=== PATIENT | female | born 1990 | race Caucasian/White ===

== ENCOUNTER 2018-02-06 08:57 | Emergency (ER) | END 2018-02-06 12:39 | disposition home or self-care (01) ==

== ENCOUNTER 2018-03-15 08:57 | Emergency (ER) | END 2018-03-15 10:28 | disposition home or self-care (01) ==

== ENCOUNTER 2018-06-06 18:39 | Outpatient (CLI) | END 2018-06-06 19:53 | disposition home or self-care (01) ==

== ENCOUNTER 2018-07-30 11:44 | Outpatient (CLI) | payer OTHER ==
[~2018-07-30] VITALS: Ht 165.1 cm; Wt 132.0 kg
[~2018-07-30 11:44] MED LIST: ACET500C5 PO; ALBU8.5H8 INH
[2018-07-30 11:59] VITALS: BP 125/61; PULSE 83; RESP 18; Ht 165.1 cm; Wt 132.0 kg
--- NOTE | 2018-07-30 14:26 | TRIAGE ---
OB Triage Datetime Report Generated by CPN: 07/30/2018 14:26 Datetime: 07/30/2018 12:52 Stage of : OB Triage Headache: Denies Blurred Vision: No RUQ Epigastric Pain: Denies Facial Edema: None Labor Evaluation Frequency: none Pattern: Normal: <= 5 Contractions in 10 Minutes Resting Tone [place]: Relaxed Heart Rate FHR Baseline Rate: 140 Monitor Mode: External US FHR Baseline Changes: No Baseline Change Variability: Moderate 6-25 bpm Accelerations: 15X15 Decelerations: None Category: Category I Comments: NST- reactive Pain Presence: None/Denies Vaginal Exam Membrane Status: Intact Datetime: 07/30/2018 12:30 Stage of : OB Triage Headache: Denies Blurred Vision: No RUQ Epigastric Pain: Denies Facial Edema: None Labor Evaluation Frequency: none Pattern: Normal: <= 5 Contractions in 10 Minutes Resting Tone [place]: Relaxed Heart Rate FHR Baseline Rate: 140 Monitor Mode: External US FHR Baseline Changes: No Baseline Change Variability: Moderate 6-25 bpm Accelerations: 15X15 Decelerations: None Category: Category I Pain Presence: None/Denies Vaginal Exam Membrane Status: Intact Datetime: 07/30/2018 11:54 Time of Arrival: 07/30/2018 11:52 EGA: 38.4 Arrived By: Ambulatory Arrived From: Dr. Rodriguez Chief Complaint: sent from clinic for NST /BPP, scheduled for section on 08/02/18 Movement: Present Contractions: Denies/Absent Rupture of Membranes: Denies Vaginal Bleeding: None Vaginal Discharge: Denies Recent Sexual Intercouse: Denies Abdominal Trauma: Not Applicable Patient Complaints: Other Time Provider Notified: 07/30/2018 14:20 Provider Notified: Dr Yañez Initial Plan: efm/ U/S Datetime: 07/30/2018 11:52 Stage of : OB Triage Maternal Assessment Level of Consciousness: Fully Conscious DTR's/Clonus: DTRs 2+; No Clonus Headache: Denies Blurred Vision: No Respiratory Effort: Unlabored; Regular Rhythm; Equal Expansion Breath Sounds, Left: Clear and Equal Breath Sounds, Right: Clear and Equal Nausea/Vomiting: Denies RUQ Epigastric Pain: Denies Lower Extremities Edema: Bilateral Lower Extremities Degree: None Upper Extremities Edema: None Degree: None Facial Edema: None Temperature Route: Oral Fall Risk Assessment History of Falling: (0) No Secondary Diagnosis: (0) No Ambulatory Aid: (0) Bedrest/Nurse Assist IV Therapy: (0) No Gait: (0) Normal/Bedrest/Immobile Mental Status: (0) Oriented to Own Ability Fall Score: 0 Fall Risk Score Definition: No Risk: No action required Monitor Mode: External Heart Rate FHR Baseline Rate: 140 Monitor Mode: External US Pain Assessment Pain Scale: 0 Datetime: 06/06/2018 19:44 Labor Evaluation Frequency: NONE Monitor Mode: External Resting Tone [place]: Relaxed Contraction Comments: [place] REMOVED Heart Rate FHR Baseline Rate: 135 Monitor Mode: External US Variability: Moderate 6-25 bpm Accelerations: 15X15 Decelerations: None Comments: US REMOVED Datetime: 06/06/2018 19:04 Pattern: Normal: <= 5 Contractions in 10 Minutes Resting Tone [place]: Relaxed Contraction Comments: NO UC Heart Rate FHR Baseline Rate: 135 Monitor Mode: External US Variability: Moderate 6-25 bpm Accelerations: 15X15 Decelerations: None Category: Category I Comments: reactive nst Pain Presence: None/Denies Pain Type: N/A Datetime: 06/06/2018 18:55 Assessment Type: Triage Maternal Assessment Level of Consciousness: Fully Conscious DTR's/Clonus: DTRs 2+; No Clonus Headache: Denies Blurred Vision: No Respiratory Effort: Unlabored; Regular Rhythm; Equal Expansion Breath Sounds, Left: Clear and Equal Breath Sounds, Right: Clear and Equal Nausea/Vomiting: Denies RUQ Epigastric Pain: Denies Lower Extremities Edema: None Degree: None Upper Extremities Edema: None Degree: None Facial Edema: None Fall Risk Assessment History of Falling: (0) No Secondary Diagnosis: (0) No Ambulatory Aid: (0) Bedrest/Nurse Assist IV Therapy: (0) No Gait: (0) Normal/Bedrest/Immobile Mental Status: (0) Oriented to Own Ability Fall Score: 0 Fall Risk Score Definition: No Risk: No action required Datetime: 06/06/2018 18:53 Time of Arrival: 06/06/2018 18:18 EGA: 30.6 Arrived By: Ambulatory Arrived From: Office Chief Complaint: Pt. came to ob triage from md office with referral requested hx of low marsha, need t o be recheck Movement: Present Contractions: Denies/Absent Rupture of Membranes: Denies Vaginal Bleeding: None Vaginal Discharge: Denies Recent Sexual Intercouse: Denies Abdominal Trauma: Not Applicable Patient Complaints: None Provider Notified: CHE Initial Plan: rajat avitia
--- NOTE | 2018-07-30 14:27 | PN ---
Triage Information Date/Time Reason for visit: Sent by provider for NST BPP for Obesity Weeks of Gestation 38+ /Para n/a Diabetes: none Hypertention: none Objective Vital Signs Date Temp Pulse Resp B/P (MAP) Pulse Ox O2 O2 Flow FiO2 Time Delivery Rate 07/30/18 97.4 83 18 125/61 99 Room Air 11:59 (82) Heart Rate: 140's Contractions: None Disposition: Discharge Assessment/Plan BPP 03/20 CX closed Discharged with precautions Questions answered Precautions discussed MAGUI HESS M.D. Jul 30, 2018 14:27
== END 2018-07-30 14:30 | disposition home or self-care (01) ==
LOC: OBT 11:44 → L-D 11:44 → OBT 14:30
PROVIDERS: ATTEND Obstetrics & Gynecology
DX: O99.213 Obesity complicating pregnancy, third trimester (principal); E66.9 Obesity, unspecified; Z3A.38 38 weeks gestation of pregnancy
CPT/HCPCS: 76818; Z7500; G0463

== ENCOUNTER 2018-08-02 19:29 | Inpatient (IN) | payer OTHER ==
[~2018-08-02] VITALS: Ht 165.1 cm; Wt 132.0 kg
[2018-08-02] MEDS ORDERED: LACTATED RINGER'S 1,000 ML IV SCH (19:56)
[2018-08-02] MEDS ORDERED: CARBOPROST 250 MCG INJ IM PRN (20:00)
[2018-08-02] MEDS ORDERED: OXYTOCIN 30 UNITS/LR 500 ML IV PRN (20:00)
[2018-08-02] MEDS ORDERED: METHYLERGONOVINE 0.2 MG INJ IM PRN (20:00)
[2018-08-02] MEDS ORDERED: MISOPROSTOL 200 MCG TAB PR PRN (20:00)
[2018-08-02] MEDS ORDERED: CEFAZOLIN 2 GM/50 ML (PMX) 50 ML IVPB SCH (20:00)
[2018-08-02 20:20] VITALS: Ht 165.1 cm; Wt 132.0 kg
--- NOTE | 2018-08-02 20:57 | HP ---
Date/Time of Note Date/Time of Note DATE: 08/02/18 TIME: 20:48 OB - History Hx of Present Free Text/Dictation 28-year-old 2 para 1001 with previous delivery for macrosomia and obesity at 39 weeks with a SALVATORE of 08/09/2018 desires repeat delivery. She declined TOLAC. She states good movement. She denies nausea, vomiting, shortness of breath, chest pain, headache, visual changes, vaginal bleeding or LOF. Chief Complaint: Scheduled for repeat delivery Estimated Due Date: Aug 09, 2018 : 2 Para: 1 Spontaneous : 0 Therapeutic : 0 Care: Good Care Ultrasounds: Normal mid trimester US Obstetrical Complications: None Medical Complications: None Past Family/Social History * Past Medical, Surgical, Family and Obstetric Histories reviewed from chart. Blood Type: A+ Rubella: not immune RPR/VDRL: Negative GBS Status: Positive HBsAG: Negative OB Admission Exam Vital Signs Vital Signs Blood pressure 126/72, pulse rate 70/minutes, respiratory rate 16/minutes, temperature 98.6 Physical Exam HEENT: WNL Heart: Rhythm Normal Lungs: Clear Abdomen: WNL Extremities: Normal Reflexes: Normal Membranes: Intact Heart Rate: 130's Accelerations: Accelerations Present Decelerations: No Decelerations Varibility: Moderate Contractions on Admission: None Last 72 hours Lab Results CBC & BMP 08/02/18 20:25 OB Assessment/Plan Other plan: 28-year-old 2 para 1001 with 2 previous delivery and obesity at 39 weeks desires repeat delivery - FHR: No sign of metabolic acidosis- Category I - Continuous EFM, toco - CBC, blood type and screen - Please see the orders - A+/Rubella: Non immune, discussed with patient. She understands needs rubella vaccine after delivery - GBS: Positive The risk of delivery including but not limited to bleeding, infection, injury to other organs (bowel, bladder, ureter, vessels, nerves), injury to fetus, blood transfusion, blood transfusion related infection, risk of anesthesia, adhesion, needs for future , removal of uterus or any other indicated surgery was discussed with the patient and her family. She expressed understanding. All of her questions were answered. She signed the informed consent. PHYSICIAN'S VERIFICATION OF INFORMED CONSENT The patient and her family member counseled regarding the procedure, its indications, risks, potential complications and alternatives and any questions were answered. Consent was obtained. PLANNED PROCEDURE/TREATMENT: delivery with possible using v acuum/forceps and any other indicated surgery PHYSICIAN'S VERIFICATION OF INFORMED CONSENT FOR BLOOD TRANSFUSION: There is a reasonable possibility that blood transfusion will be necessary as a result of the patient's procedure. I have discussed the following with the patient/patient's legal site safety representative: An explanation of the benefits and risks of the transfusion of blood or blood products and the possible alternatives. All questions have been answered to the patient's satisfaction. INFORMED CONSENT:The patient has been informed of: The nature of the proposed care, treatment, services, medications, interventions or procedures. Potential benefits, risks or side effects, including potential problems related to recuperation. The likelihood of achieving care treatment and service goals. Reasonable alternatives to the proposed care, treatment and service. The relevant risks, benefits and side effects related to alternatives, including the possible results of not receiving care, treatment and services. When indicated, any limitations on the confidentiality of information learned from or about the patient. If appropriate, the risks, benefits and alternatives of the drugs to be used for sedation/analgesia including moderate sedation. If appropriate, patient has been provided information on the risks, benefits and alternatives to the transfusion of blood and/or blood products. If appropriate, patient has been provided information regarding the [employer] Blood Act. GAL GRAY Aug 02, 2018 20:57
--- NOTE | 2018-08-02 21:50 | PREAC ---
Date/Time of Note Date/Time of Note DATE: 08/02/18 TIME: 21:46 Anesthesia Eval and Record Evaluation Time Pre-Procedure Interview DATE: 08/02/18 TIME: 21:46 Age 28 Sex female NPO: 8 hrs Preoperative diagnosis repeat csection Planned procedure C section Past Medical History Past Medical History: Includes GI: Morbid obesity Surgery & Anesthesia Issues No known issue Meds Anticoagulation: No Beta Poornima within 24 hr: No Reason Beta Poornima not given: Pt. not on B-Poornima Active Scripts Acetaminophen* (Tylophen*) 500 Mg Capsule, 1 CAP PO Q6H PRN for PAIN AND OR ELEVATED TEMP, #20 CAP Prov:FERNANDA JOSE PA-C 02/06/18 Albuterol Sulfate* (Proair HFA*) 8.5 Gm Hfa.aer.ad, 2 PUFF INH Q4H PRN for WHEEZING AND SOB, #1 INHALER Prov:GUSTAVO SMITH NP 02/21/16 Current Medications Lactated Ringer's 1,000 ml @ 125 mls/hr Q8H IV ; Start 08/02/18 at 19:56 Cefazolin Sodium/ Dextrose 50 ml @ 100 mls/hr ONCE IVPB ; Start 08/02/18 at 20:00 Oxytocin/Lactated Ringer's 500 ml @ 125 mls/hr POST IV ; Start 08/02/18 at 20:00 Oxytocin/Lactated Ringer's 500 ml @ 0 mls/hr ONCE PRN IV .VAGINAL BLEEDING; Start 08/02/18 at 20:00 Methylergonovine Maleate (Methergine) 0.2 mg ONCE PRN IM .VAGINAL BLEEDING; Start 08/02/18 at 20:00 Carboprost Tromethamine (Hemabate) 250 mcg ONCE PRN IM .VAGINAL BLEEDING; Start 08/02/18 at 20:00 Misoprostol (Cytotec) 1,000 mcg ONCE PRN [place] .VAGINAL BLEEDING; Start 08/02/18 at 20:00 Meds reviewed: Yes Allergies Coded Allergies: No Known Allergy (Unverified , 02/06/18) Allergies Reviewed: Yes Labs/Studies Labs Reviewed: Reviewed by anesthesiologist Result Diagram: 08/02/182024 Laboratory Tests 08/02/18 20:25 Blood Bank Test 08/02/18 20:25 Antibody Screen NEGATIVE Blood Type A POSITIVE Rh Immune Globulin Candidate NO test: Positive Studies: ECG (n/a), CXR (n/a) Pre-procedure Exam Airway: Adequate mouth opening Mallampati: Mallampati II Teeth: Normal Lung: Normal Heart: Normal ASA Physical Status ASA physical status: 3 Emergency: None Planned Anesthetic Neuraxial: Spinal Planned Pain Management Sub-arachniod narcotics Pre-operative Attestations Prior to commencing anesthesia and surgery, the patient was re-evaluated, there was verification of: *The patient's identity *The results of appropriate recent lab work and preoperative vital signs *The above evaluation not changing prior to induction *Anesthetic plan, risk benefits, alternative and complications discussed with patient/family; questions answered; patient/family understands, accepts and wishes to proceed. ANANT DAO MD Aug 02, 2018 21:50
[2018-08-03] MEDS ORDERED: morphine SULFATE/PF (10 MG/10 ML) INJ ONE (08:11)
[2018-08-03] MEDS ORDERED: MIDAZOLAM 1 MG/ML 2 ML INJ ONE (08:51)
[2018-08-03] MEDS ORDERED: BUPIVACAINE 0.75%/DEXT (SPINAL) 2 ML INJ ONE (08:51)
--- NOTE | 2018-08-03 08:56 | PREAC ---
Date/Time of Note Date/Time of Note DATE: 08/03/18 TIME: 08:49 Anesthesia Eval and Record Evaluation Time Pre-Procedure Interview DATE: 08/03/18 TIME: 07:43 Age 28 Sex female NPO: 8 hrs Preoperative diagnosis iup @ 39 wks., prev. c/s, , contractions Planned procedure repeat c/s Past Medical History Past Medical History: Includes (BMI) Pulm: Asthma : Gestational age: (39 wks), Other Surgery & Anesthesia Issues No known issue Meds Anticoagulation: No Beta Poornima within 24 hr: No Reason Beta Poornima not given: Pt. not on B-Poornima Active Scripts Acetaminophen* (Tylophen*) 500 Mg Capsule, 1 CAP PO Q6H PRN for PAIN AND OR ELEVATED TEMP, #20 CAP Prov:FERNANDA JOSE PA-C 02/06/18 Albuterol Sulfate* (Proair HFA*) 8.5 Gm Hfa.aer.ad, 2 PUFF INH Q4H PRN for WHEEZING AND SOB, #1 INHALER Prov:GUSTAVO SMITH ICE CREAM FREEZER 02/21/16 Current Medications Lactated Ringer's 1,000 ml @ 125 mls/hr Q8H IV Last administered on 08/03/18at 05:50; Admin Dose 125 MLS/HR; Start 08/02/18 at 19:56 Cefazolin Sodium/ Dextrose 50 ml @ 100 mls/hr ONCE IVPB ; Start 08/02/18 at 20:00 Oxytocin/Lactated Ringer's 500 ml @ 125 mls/hr POST IV ; Start 08/02/18 at 20:00 Oxytocin/Lactated Ringer's 500 ml @ 0 mls/hr ONCE PRN IV .VAGINAL BLEEDING; Start 08/02/18 at 20:00 Methylergonovine Maleate (Methergine) 0.2 mg ONCE PRN IM .VAGINAL BLEEDING; Start 08/02/18 at 20:00 Carboprost Tromethamine (Hemabate) 250 mcg ONCE PRN IM .VAGINAL BLEEDING; Start 08/02/18 at 20:00 Misoprostol (Cytotec) 1,000 mcg ONCE PRN IN .VAGINAL BLEEDING; Start 08/02/18 at 20:00 Meds reviewed: Yes Allergies Coded Allergies: No Known Allergy (Unverified , 02/06/18) Allergies Reviewed: Yes Labs/Studies Labs Reviewed: Reviewed by anesthesiologist Result Diagram: 08/02/182024 Laboratory Tests 08/02/18 20:25 Blood Bank Test 08/02/18 20:25 Antibody Screen NEGATIVE Blood Type A POSITIVE Rh Immune Globulin Candidate NO test: Positive Studies: ECG (n/a) Pre-procedure Exam Airway: Adequate mouth opening, Adequate thyromental dist Mallampati: Mallampati II Teeth: Normal Lung: Normal Heart: Normal ASA Physical Status ASA physical status: 3 Emergency: E Planned Anesthetic General/MAC: TIVA (TIVA post baby) Neuraxial: Spinal Planned Pain Management Sub-arachniod narcotics, Local by surgeon Pre-operative Attestations Prior to commencing anesthesia and surgery, the patient was re-evaluated, there was verification of: *The patient's identity *The results of appropriate recent lab work and preoperative vital signs *The above evaluation not changing prior to induction *Anesthetic plan, risk benefits, alternative and complications discussed with patient/family; questions answered; patient/family understands, accepts and wishes to proceed. Senior Strategy Manager used ESTHER BAR MD Aug 03, 2018 08:56
--- NOTE | 2018-08-03 08:58 | PAC ---
Date/Time of Note Date/Time of Note DATE: 08/03/18 TIME: 11:00 Post-Anesthesia Notes Post-Anesthesia Note Activity: WNL Respiratory function: WNL Cardiovascular function: WNL Mental status: Baseline Pain reasonably controlled: Yes Hydration appropriate: Yes Nausea/Vomiting absent: Yes ESTHER BAR MD Aug 03, 2018 08:58
[2018-08-03] MEDS ORDERED: LACTATED RINGER'S 1,000 ML IV ONE (09:03)
--- NOTE | 2018-08-03 09:03 | OPPN ---
Date/Time of Note Date/Time of Note DATE: 08/04/18 TIME: 00:30 Anesthesia Follow up Anesthesia Follow up Respiratory function: WNL Cardiovascular function: WNL Comments S: pt. pod #1. min. bt pain. min. n/v. min. need for bt pain meds ie. nsaids, opiates. ambulating. O: vss. afeb. A: min. bt pain secondary to it mso4. P: no complications. ESTHER BAR MD Aug 03, 2018 09:03
[2018-08-03] MEDS ORDERED: NALBUPHINE HCL (10 MG/1 ML) INJ IV PRN (09:30)
[2018-08-03] MEDS ORDERED: ONDANSETRON 4 MG INJ IV ONE (09:30)
[2018-08-03] MEDS ORDERED: DIPHENHYDRAMINE 50 MG INJ IV PRN ×3 (09:30→15:30)
[2018-08-03] MEDS ORDERED: ONDANSETRON 4 MG INJ IV PRN ×3 (09:30→15:30)
[2018-08-03] MEDS ORDERED: MIDAZOLAM 1 MG/ML 2 ML INJ IV PRN (09:30)
[2018-08-03] MEDS ORDERED: ZOLPIDEM 5 MG TAB PO PRN ×2 (09:30→15:30)
[2018-08-03] MEDS ORDERED: HYDROmorphONE 0.5 MG/0.5 ML SYG IV PRN ×2 (09:30)
[2018-08-03] MEDS ORDERED: KETOROLAC 30 MG INJ IV PRN (09:30)
[2018-08-03] MEDS ORDERED: NALOXONE (0.4 MG/ML) INJ IV PRN (09:30)
[2018-08-03] MEDS ORDERED: METOCLOPRAMIDE 10 MG INJ IV PRN (09:30)
[2018-08-03] MEDS ORDERED: DIPHENHYDRAMINE 50 MG INJ ONE (09:35)
[2018-08-03] MEDS: OXYTOCIN 30 UNITS/LR 500 ML IV SCH ×2 (10:12→14:26)
--- NOTE | 2018-08-03 11:10 | OPR ---
Operative Report Planned Procedure Procedure date Aug 03, 2018 Procedure(s) Repeat low transverse delivery Performed by see signature line Automatic Driller And Reamer: LUDIN BOLTON MD Anesthesiologist: ESTHER BAR MD Pre-procedure diagnosis 28-year-old 2 para 1001 with previous delivery at 39 weeks and 1 day desires repeat delivery. [email or web address] Anesthesia Type: [id number] spinal Post-Procedure Post-procedure diagnosis 28-year-old 2 para 1001 with double footling breech and previous delivery at 39 weeks and 1 day Findings 1. Normal uterus, fallopian tubes and ovaries 2. Viable female in double footling breech presentation. 9 at one minute and 9 in 5 minutes. Weight: 8 pounds 15 ounces - 4060 g. Height 20.5 inches. Time of delivery: 08:50 3. Placenta with three vessel cord 4. Amniotic fluid - Clear Estimated Blood Loss: 500 - 600 mls Specimen(s) none Grafts/Implant(s) none Complication(s) none Pt Condition post procedure: stable Disposition: PACU Procedure Description INDICATION AND HISTORY: A 28-year-old 2 para 1001 with previous delivery at 39 weeks and 1 day desires repeat delivery. The risk of delivery including but not limited to bleeding, infection, injury to other organs (bowel, bladder, ureter, vessels, nerves), injury to fetus, blood transfusion, blood transfusion related infection, risk of anesthesia, adhesion, needs for future , removal of uterus or any other indicated surgery was discussed with the patient and her family. She expressed understanding. All of her questions were answered. She signed the informed consent. DESCRIPTION OF OPERATION: The patient was taken to the operating room, where she was identified and the procedure was verified. The patient received two gram of Ancef 30 minutes prior to surgery. Spinal anesthesia was placed. The patient placed in the dorsal supine position with a left tilt. The heart rate was 130 bpm. The patient was then prepped and draped in the normal sterile fashion. A Pfannenstiel skin incision was made and carried down to the fascia with Bovie. The fascia was incised in the midline and the fascial incision was carried laterally with Peralta scissors. The superior portion of the fascial incision was then grasped with Gino clamps and tented up and dissected off the underlying rectus muscle with sharp dissection. The lower portion of the fascial incision was then made in a similar fashion. The rectus muscle was and the peritoneum was entered. The peritoneal incision was then stretched and an Alphonse retractor was inserted. Then, an incision was made in the lower uterine segment in a transverse fashion with a knife and extended bluntly. The was delivered atraumatically in double footling breech presentation with the above findings. The umbilical cord was clamped and cut. The neonatology resus citation team was present and the baby was handed to them. A cord blood sample was obtained for further evaluation. The placenta and membrane, which appeared normal were Removed. The uterus was exteriorized and cleared of all clot and debris. The uterus was then closed in a two layer fashion with 0-Monocryl. At the time of closure, hemostasis was noted. The gutters were irrigated. The peritoneum was reapproximated with 3-0 Vicryl. The muscle was reapproximated with 3-0 Vicryl. The fascia was approximated with 0-Vicryl in a running fashion. The subcutaneous tissue was re approximated with 3-0 vicryl. The skin was closed with 4-0 Monocryl. All instruments, sponges and needle counts were correct x3. The patient tolerated the procedure well. She transferred to the recovery room in stable condition. GAL GRAY Aug 03, 2018 11:10
[2018-08-03 15:05] VITALS: BP 131/59; PULSE 96; RESP 18
[2018-08-03] MEDS ORDERED: DEXTROSE 5%-LR 1,000 ML IV SCH (15:23)
[2018-08-03] MEDS ORDERED: OXYTOCIN 30 UNITS/LR 500 ML IV PRN (15:30)
[2018-08-03] MEDS ORDERED: CARBOPROST 250 MCG INJ IM PRN (15:30)
[2018-08-03] MEDS ORDERED: BENZOCAINE 20% 56 ML SPRAY TOP PRN (15:30)
[2018-08-03] MEDS ORDERED: LANOLIN HPA 1 PKT TOP PRN (15:30)
[2018-08-03] MEDS ORDERED: OXYCODONE/ASPIRIN (4.88/325) TAB PO PRN (15:30)
[2018-08-03] MEDS ORDERED: ACETAMINOPHEN 325 MG TAB PO PRN (15:30)
[2018-08-03] MEDS ORDERED: METHYLERGONOVINE 0.2 MG INJ IM PRN (15:30)
[2018-08-03] MEDS ORDERED: WITCH HAZEL/GLYCERIN PAD PR PRN (15:30)
[2018-08-03] MEDS ORDERED: MISOPROSTOL 200 MCG TAB PR PRN (15:30)
[2018-08-03] MEDS ORDERED: DIBUCAINE 1% 30 GM OINT TOP PRN (15:30)
[2018-08-03 15:35] VITALS: BP 121/65; PULSE 77; RESP 19
[2018-08-03] MEDS: LACTATED RINGER'S 1,000 ML IV* SCH (19:47)
[2018-08-03 20:15] VITALS: BP 127/73; PULSE 72; RESP 18
[2018-08-04] MEDS: LACTATED RINGER'S 1,000 ML IV* SCH (02:11)
[2018-08-04 05:00] VITALS: BP 105/58; PULSE 81; RESP 18
[2018-08-04] MEDS ORDERED: EPHEDrine SULFATE 50 MG/5 ML SYG ONE (07:00)
[2018-08-04] MEDS ORDERED: PHENYLephrine (100 MCG/ML) 10ML SYG ONE (07:00)
[2018-08-04] MEDS ORDERED: METOCLOPRAMIDE 10 MG INJ ONE (07:00)
[2018-08-04 08:10] VITALS: BP 111/56; RESP 20
[2018-08-04] MEDS ORDERED: INFLUENZA VIRUS VACCINE 0.5 ML (DISPENSING) IM* ONE (09:00)
[2018-08-04] MEDS: IBUPROFEN 600 MG TAB PO SCH ×3 (12:05→23:47)
[2018-08-04 16:05] VITALS: BP 121/72; PULSE 85; RESP 20
[2018-08-04 19:45] VITALS: BP 95/52; PULSE 85; RESP 18
[2018-08-04] MEDS: SENNA/DOCUSATE NA (8.6MG/50MG) TAB PO PRN (20:18)
--- NOTE | 2018-08-05 00:58 | PN ---
Date/Time of Note Date/Time of Note DATE: 08/05/18 TIME: 00:56 OB Subjective Subjective Subjective POD#1 Patient is doing well. She denies nausea, vomiting, shortness of breath, chest pain, headache. She has been ambulating without difficulty, tolerating regular diet. Pain is well controlled on current medications OB Objective Objective Objective VS - Last 72 Hours, by Label Date Temp Pulse Resp B/P (MAP) Pulse Ox O2 O2 Flow FiO2 Time Delivery Rate 08/04/18 98.1 85 18 95/52 (66) Room Air 19:45 08/04/18 98.3 85 20 121/72 Room Air 16:05 (88) 08/04/18 99.9 20 111/56 97 08:10 (74) 08/04/18 99.1 81 18 105/58 Room Air 05:00 (74) 08/03/18 97.8 72 18 127/73 Room Air 20:15 (91) 08/03/18 97.7 77 19 121/65 15:35 (83) 08/03/18 97.8 96 18 131/59 Room Air 15:05 (83) General: AAO X 3, comfortable, NAD, appropriate mood and affect. Heart: RRR +S1, +S2, no murmurs. Lungs: Clear to auscultation (B/L), no rales, rhonchi or wheezing. ABD: +BS. Soft, non-tender. Uterus 2 cm below umbilicus Incision: Clear, dry, intact. No erythema, drainage or induration. Flank: No CVA tenderness (B/L) LE: Mild edema. No clubbing, cyanosis, thigh or calf tenderness (B/L). Homans 'sign is negative Laboratory Tests Test 08/04/18 06:19 White Blood Count 11.4 10^3/ul Red Blood Count 3.48 10^6/ul Hemoglobin 10.5 g/dl Hematocrit 31.6 % Mean Corpuscular Volume 90.8 fl Mean Corpuscular Hemoglobin 30.2 pg Mean Corpuscular Hemoglobin Concent 33.2 g/dl Red Cell Distribution Width 13.2 % Platelet Count 212 10^3/UL Mean Platelet Volume 10.5 fl Immature Granulocytes % 0.600 % Neutrophils % 77.9 % Lymphocytes % 10.3 % Monocytes % 9.7 % Eosinophils % 1.2 % Basophils % 0.3 % Nucleated Red Blood Cells % 0.0 /100WBC Immature Granulocytes # 0.070 10^3/ul Neutrophils # 8.9 10^3/ul Lymphocytes # 1.2 10^3/ul Monocytes # 1.1 10^3/ul Eosinophils # 0.1 10^3/ul Basophils # 0.0 10^3/ul Nucleated Red Blood Cells # 0.0 10^3/ul OB Assessment/Plan Other plan: 28-year-old 2 para 2001 s/p repeat delivery. POD#1 - AF, VSS - Contraception methods with R/B/A/FR discussed - Continue care - GAL GRAY Aug 05, 2018 00:58
[2018-08-05 03:42] VITALS: BP 111/60; PULSE 84; RESP 18
[2018-08-05] MEDS: IBUPROFEN 600 MG TAB PO SCH ×3 (06:08→18:09)
[2018-08-05 08:00] VITALS: BP 120/60; PULSE 90; RESP 18
--- NOTE | 2018-08-05 08:15 | PN ---
Date/Time of Note Date/Time of Note DATE: 08/05/18 TIME: 08:14 OB Subjective Subjective Subjective POD#1 Patient is doing well. She denies nausea, vomiting, shortness of breath, chest pain, headache. She has been ambulating without difficulty, tolerating regular diet. Pain is well controlled on current medications OB Objective OB Objective Objective Objective VS - Last 72 Hours, by Label Date Temp Pulse Resp B/P (MAP) Pulse Ox O2 O2 Flow FiO2 Time Delivery Rate 08/04/18 98.1 85 18 95/52 (66) Room Air 19:45 08/04/18 98.3 85 20 121/72 Room Air 16:05 (88) 08/04/18 99.9 20 111/56 97 08:10 (74) 08/04/18 99.1 81 18 105/58 Room Air 05:00 (74) 08/03/18 97.8 72 18 127/73 Room Air 20:15 (91) 08/03/18 97.7 77 19 121/65 15:35 (83) 08/03/18 97.8 96 18 131/59 Room Air 15:05 (83) General: AAO X 3, comfortable, NAD, appropriate mood and affect. Heart: RRR +S1, +S2, no murmurs. Lungs: Clear to auscultation (B/L), no rales, rhonchi or wheezing. ABD: +BS. Soft, non-tender. Uterus 2 cm below umbilicus Incision: Clear, dry, intact. No erythema, drainage or induration. Flank: No CVA tenderness (B/L) LE: Mild edema. No clubbing, cyanosis, thigh or calf tenderness (B/L). Homans 'sign is negative Laboratory Tests Test 08/04/18 06:19 White Blood Count 11.4 10^3/ul Red Blood Count 3.48 10^6/ul Hemoglobin 10.5 g/dl Hematocrit 31.6 % Mean Corpuscular Volume 90.8 fl Mean Corpuscular Hemoglobin 30.2 pg Mean Corpuscular Hemoglobin Concent 33.2 g/dl Red Cell Distribution Width 13.2 % Platelet Count 212 10^3/UL Mean Platelet Volume 10.5 fl Immature Granulocytes % 0.600 % Neutrophils % 77.9 % Lymphocytes % 10.3 % Monocytes % 9.7 % Eosinophils % 1.2 % Basophils % 0.3 % Nucleated Red Blood Cells % 0.0 /100WBC Immature Granulocytes # 0.070 10^3/ul Neutrophils # 8.9 10^3/ul Lymphocytes # 1.2 10^3/ul Monocytes # 1.1 10^3/ul Eosinophils # 0.1 10^3/ul Basophils # 0.0 10^3/ul Nucleated Red Blood Cells # 0.0 10^3/ul OB Assessment/Plan OB Assessment/Plan Other plan: 28-year-old 2 para 2001 s/p repeat delivery. POD#2 - AF, VSS - Contraception methods with R/B/A/FR discussed - Continue care -Discharge home tomorrow. Prescription and instruction given. Follow-up in 1 and 6 weeks GAL GRAY Aug 05, 2018 08:15
[2018-08-05] MEDS ORDERED: MEASLES,MUMPS,RUBELLA VACCINE INJ SC* ONE (09:00)
[2018-08-05] MEDS ORDERED: DIPHTH/TET/ACEL PERTUSS (ADULT) 0.5 ML VIAL IM* ONE (09:00)
[2018-08-05] MEDS: MAGNESIUM HYDROXIDE 30ML CUP PO PRN ×2 (12:14→21:43)
[2018-08-05 16:00] VITALS: BP 102/66; PULSE 81; RESP 20
[2018-08-05 20:00] VITALS: BP 105/56; PULSE 85; RESP 20
[2018-08-05] MEDS: SENNA/DOCUSATE NA (8.6MG/50MG) TAB PO PRN (21:46)
[2018-08-06] MEDS: IBUPROFEN 600 MG TAB PO SCH ×3 (00:12→11:52)
--- NOTE | 2018-08-06 01:16 | DS ---
Date/Time of Note Date/Time of Note DATE: 08/06/18 TIME: 01:14 Obstetrical Discharge Record Final Diagnosis Final Diagnosis: Term delivered Other Final Diagnosis 28-year-old 2 para 2002 s/p repeat delivery. POD#3. She is ambulating and tolerating regular diet. She is voiding without difficulty. She had bowel movement. Pain is controlled on current medication. - AF, VSS - Contraception methods with R/B/A/FR discussed - Continue care - Discharge home - Prescription and instruction given - Follow-up in 1 and 6 weeks Section Section: Repeat Condition on Discharge Physical Assessment Last Vitals: Vital Signs Date Temp Pulse Resp B/P (MAP) Pulse Ox O2 O2 Flow FiO2 Time Delivery Rate 08/05/18 97.9 85 20 105/56 Room Air 20:00 (72) 08/04/18 97 08:10 Voiding: Yes Bowel Movement: Yes Breast: Soft, non-tender Fundus: Firm Calf Tenderness: No Patient Condition: Stable GAL GRAY Aug 06, 2018 01:16
[2018-08-06 04:00] VITALS: BP 111/64; PULSE 72; RESP 18
[2018-08-06 08:10] VITALS: BP 122/79; PULSE 76; RESP 20
[2018-08-06] MEDS: MAGNESIUM HYDROXIDE 30ML CUP PO PRN (09:20)
[2018-08-06] MEDS: SENNA/DOCUSATE NA (8.6MG/50MG) TAB PO PRN (09:20)
[2018-08-06] MEDS ORDERED: MEASLES,MUMPS,RUBELLA VACCINE INJ SC* ONE (11:30)
== END 2018-08-06 15:50 | disposition home or self-care (01) | DRG 788 ==
LOC: L-D 19:29 → PP1 08-03 14:55
PROVIDERS: ADMIT Obstetrics & Gynecology; ATTEND Obstetrics & Gynecology
PROC: 10D00Z1 Extraction of Products of Conception, Low, Open Approach (ICD-10-PCS; principal; 2018-08-02)
DX: O34.211 Maternal care for low transverse scar from previous cesarean delivery (principal); O32.8XX0 Maternal care for other malpresentation of fetus, not applicable or unspecified; O99.214 Obesity complicating childbirth; E66.01 Morbid (severe) obesity due to excess calories; Z37.0 Single live birth; Z3A.39 39 weeks gestation of pregnancy
CPT/HCPCS: 85025; 85610; 85730; 86592; 86850; 86900; 86901; 87340; 90686; 99464; J0690; J1200; J1885; J2250; J2274; J2370; J2405; J2590; J2765; J7120; J7121